=== PATIENT | female | born 1990 | race American Indian/Alaskan Native ===

== ENCOUNTER 2021-12-01 11:43 | Emergency (ER) | payer MEDICAID ==
[2021-12-01 11:56] VITALS: BP 128/95
--- NOTE | 2021-12-03 18:48 | Electrocardiograph Report ---
[facility] Test Date: 2021-12-01 Test Time: 11:56:43 Pat Name: JENNIFER REGAN Department: Room: Gender: F [employer]: NATALIYA : 1990 Requested By: ED DOC Order Number: [id number] Reading MD: Angus Barrera Measurements Intervals [place] Rate: 58 P: -22 MA: 164 QRS: 40 QRSD: 106 T: 55 QT: 404 QTc: 396 Interpretive Statements Sinus or ectopic bradycardia No previous ECG available for comparison Electronically Signed On 12-03-2021 18:48:14 EDT by Angus Barrera
== END 2021-12-01 18:00 | disposition left against medical advice (07) ==
LOC: ED 11:43
DX: R55 Syncope and collapse (principal); Z53.21 Procedure and treatment not carried out due to patient leaving prior to being seen by health care provider
CPT/HCPCS: 93005